=== PATIENT | female | born 1960 | race Two or more races ===

== ENCOUNTER 2021-06-04 10:01 | Emergency (ER) | payer MEDICAID, OTHER ==
[~2021-06-04] VITALS: Ht 157.5 cm; Wt 97.5 kg
[2021-06-04 11:33] VITALS: BP 137/84
[2021-06-04] MEDS ORDERED: KETOROLAC TROMETH 60MG/2ML VIAL IM ONE (12:45)
== END 2021-06-04 13:20 | disposition home or self-care (01) ==
LOC: EDSEX 10:01 → ER 10:01
DX: M16.12 Unilateral primary osteoarthritis, left hip (principal); M89.9 Disorder of bone, unspecified; I10 Essential (primary) hypertension; E78.5 Hyperlipidemia, unspecified
CPT/HCPCS: 73502; 96372; 99283; J1885

== ENCOUNTER 2023-06-04 07:08 | Emergency (ER) | payer MEDICAID ==
[~2023-06-04] VITALS: Ht 162.6 cm; Wt 106.0 kg
[2023-06-04 07:16] VITALS: BP 157/111; PULSE 98; RESP 20; TEMP 98.7; O2SAT 96
[2023-06-04] MEDS ORDERED: PROM1SOL4 PO (08:12)
[2023-06-04] MEDS ORDERED: AZIT500T66 PO (08:12)
== END 2023-06-04 08:26 | disposition home or self-care (01) ==
LOC: ER 07:08
DX: J20.9 Acute bronchitis, unspecified (principal); R07.89 Other chest pain; I10 Essential (primary) hypertension; E78.5 Hyperlipidemia, unspecified
CPT/HCPCS: 71046